=== PATIENT | female | born 1985 | race Native Hawaiian/Other Pacific Islander ===

== ENCOUNTER 2016-04-29 04:56 | Emergency (ER) | payer OTHER ==
[2016-04-29 04:57] VITALS: BP 119/80; PULSE 75; RESP 16; O2SAT 99
--- NOTE | 2016-04-29 05:15 | ED.REPORT ---
HPI-Headache Date of Service Apr 29, 2016 ED Provider: Doc,Ed MD Patient is a 30 year old female who presents to the ED complaining of a headache that began last night at 10pm. Patient states that the pain is localized to the back of her head. Patient states that she often has headaches, usually at least once a week. However, her headache tonight is different from her usual headache. She is unable to describe how this headache differs from her usual headache. Patient admits to taking Ibuprofen for her headache tonight. Patient denies having ear pain or eye pain. She reports waking up this morning with numbness of the palm of her right hand. Patient denies recent trauma or injury to her head. She states that the pain started while she was at work. She works at the [employer]. Nursing Notes Stated Complaint: HEADACHE Chief Complaint: Neuro Symptoms/ Deficits Nursing Notes Reviewed: Yes Allergies: Coded Allergies: No Known Allergies (Unverified , 04/29/16) General Time Seen by MD: 05:14 Chief Complaint Headache Hx Obtained From: Patient Arrived By: Walk-in Sudden in Onset?: No Onset Occurred: Yesterday Symptom Duration: Since onset Location: : Occipital bilateral Quality: Painful Recent Healthcare: No recent doctor visit, No recent hospitalization Similar Sx Previous: No Past Medical History Past Medical History gestational diabetes Smoking History Never Smoker Social History Alcohol Use: Denies alcohol use Drug Use: Denies drug use Other Social History: Good social support, Local resident Ambulatory Status Independent Review of Systems Eyes: Denies: Eye pain bilateral Ears / Nose / Throat: Denies: Earache bilateral GI: Denies: Nausea, Vomiting Neurologic: Reports: Headache, Numbness Complete sys rev & neg: except as marked. Physical Exam Initial Vital Signs Vital Signs (First) Date Time Temp Pulse Resp B/P Pulse Ox O2 Delivery O2 Flow Rate FiO2 04/29/16 04:57 36.4 75 16 119/80 99 Room Air Re-Eval/Medical Decision Counseled Regarding: Diagnosis Discharge & Departure Scribe Attestation Portions of this note were transcribed by Rayne Washington. I, Dr. Raya personally performed the history, physical exam and medical decision-making; I reviewed and confirmed the accuracy of the information in the transcribed note. Signed by: Serafin Joyner, 04/29/2016 0200 Darrin Raya MD Apr 29, 2016 05:15 Rayne Washington Apr 29, 2016 05:20
[2016-04-29] MEDS ORDERED: Ketorolac 30 mg/mL 2 mL Inj IM ONE (05:45)
--- NOTE | 2016-04-29 07:33 | ED.REPORT ---
HPI-Headache Date of Service Apr 29, 2016 ED Provider: Destinee Clifton MD History of Present Illness: Patient is a 30 y.o. F with past medical history of gestational diabetes who presents to the ED with onset of headache that began 10 PM 04/28/16. Patient stated that she has had several similar episodes of this type of pain in the past and that this pain is very similar. Patient stated that pain began gradually on the side of her head bilaterally and moved to the back of her head. Pain is described a throbbing type of pain. Patient stated that she uses ibuprofen and tylenol for headaches with good relief. Patient cannot recall aggrivating factor to headache. She denies nausea, vomiting, visual field defects, imbalance, loss of bowel or bladder control, change in taste, change in smell, hearing changes. She deneied that this is the worst headache of my life, and that this headache is similar to previous headaches. Additionally patient stated that she has numbness and tingling of her right hand. Patient stated that this was present before her headache began, that it comes and goes without relation to headaches. Described pain a tingling, sharp, numbness over thumb and first two fingers. Stated it is worse at the end of the day. Made worse with movement. Nursing Notes Stated Complaint: HEADACHE Chief Complaint: Neuro Symptoms/ Deficits Nursing Notes Reviewed: Yes Allergies: Coded Allergies: No Known Allergies (Unverified , 04/29/16) Scheduled PRN Naproxen (Naprosyn) 500 Mg Tablet 500 MG PO BID PRN PRN For Pain General Time Seen by MD: 07:30 Chief Complaint Headache Hx Obtained From: Patient Sudden in Onset?: No Onset Occurred: 5 - 8 hours ago Recent Healthcare: No recent doctor visit, No recent hospitalization Similar Sx Previous: Yes Past Medical History Past Medical History gestational diabetes Past Surgical History none reported Smoking History Never Smoker (works in [employer] daily second hand smoke exposure) Social History Alcohol Use: "Social" Other Social History: Good social support, Local resident Ambulatory Status Independent Review of Systems Basic Review of Systems Respiratory: No shortness of breath, No cough, No wheeze Cardiovascular: No chest pain, No dyspnea on exertion, No orthopnea, No parox noct dyspnea, No palpitations : No dysuria, No frequency Hematologic: No bleeding, No bruising Endocrine: No cold intolerance, No heat intolerance, No weight gain, No weight loss Allergy / Immune: No allergy Constitutional: Denies: Chills, Fever Eyes: Reports: Redness bilateral, Denies: Blurred bilateral, Diplopia Ears / Nose / Throat: Denies: Ear drainage bilateral, Ear ringing bilateral, Hearing loss bilateral, Nasal congestion, Nose bleeding, Throat swelling, Tongue pain, Toothache GI: Denies: Abdominal pain, Constipation, Diarrhea, Nausea, Vomiting Musculoskeletal: Reports: Neck pain Neurologic: Reports: Headache, Denies: Abnormal movement, Bladder dysfunction, Bowel dysfunction, Confusion , Dizziness, Focal weakness, Lightheaded Complete sys rev & neg: except as marked. Physical Exam Initial Vital Signs Vital Signs (First) Date Time Temp Pulse Resp B/P Pulse Ox O2 Delivery O2 Flow Rate FiO2 04/29/16 04:57 36.4 75 16 119/80 99 Room Air Initial VS: Reviewed ENT: Mucous membranes moist, Conjunctiva normal, No scleral icterus Respiratory: Breath sounds normal, Clear to auscultation, No respiratory distress Cardiovascular: Regular rate & rhythm, Heart sounds normal, Intact distal pulses Abdomen / GI: Soft, Non-tender, No guarding, No rebound, No distention Back: No CVA tenderness Lymphatic: No lymphadenopathy Extremities: Vascular intact, Neuro intact, No swelling, No tenderness Skin: Warm, Dry, No cyanosis Psychiatric: Mood/affect normal, Behavior normal, Normal thought content Neck: No meningismus Neurologic: Oriented X3, Speech NL, No motor deficits, No sensory deficits, CN II - XII intact, Cerebellar NL Focal Weakness: Negative: Pronator drift L, Pronator drift R Sensory Deficit: Positive: Median nerve deficit (right: positive tinels sign, postive phalen's test) Wrist / Hand: Neurologic intact, Vascular intact, No ligamentous injury, No clubbing/cyanosis Right Wrist: Positive: Carpal tunnel signs... (Tinel's and Phalen's sign present), ROM reduced (due to pain), Swelling present... (Mild) Procedures Procedure Notes: After Verbal consent obtained a structual osteopathic exam of head and neck was completed. Hypertonicity of the suboccipital muscles was noted on exam. Area was treated with suboccipital release. Patient noted improvement of symptoms Re-Eval/Medical Decision Med Decision/Clinical Course 30 y.o. F who presented with headache and numbness/tingling of right hand. After history was taken headache and pain described by patient were elucidated to be unrelated and chronic in nature. No focal neurological deficits seen on exam, no thunderclap headeache, no meningismus, no LOC reported, full ROM of neck. At this time subarachnoid hemorrhage, aneurysm, meningitis are not suspected. Patient recieved improvement from Toradol and osteopathic manipulation. Cause of patients symptoms are consistent with a tension headache. Counseled Regarding: Diagnosis, Lab results, Need for follow-up, When/why to return to ED Discharge & Departure Impression: Primary Impression: Headache Headache type: tension-type Headache chronicity pattern: unspecified pattern Intractability: not intractable Qualified Code: G44.209 - Tension- type headache, unspecified, not intractable Additional Impressions: Tension headache Carpal tunnel syndrome of right wrist Discharge Condition All VS Reviewed: Yes Condition: Stable Patient Instructions: Acute Headache (DC), Carpal Tunnel Syndrome (DC), Tension Headache (DC) Additional Instructions: During you visit to [facility] Emergency Department we conducted a physical exam and treated your headache with an anti-inflammatory medication. No acute processes or abnormalities requiring emergent intervention are required. Your vital signs were stable and safe for discharge. We will send you home with - Pain medications Naprosyn - Nausea medications Zofran Do not hesitate to call emergency services or your primary care physician if you experience any of the following. - High unrelenting fevers. - Uncontrolled vomiting. - Severe hypertension. - Syncope or loss of consciousness. - Chest pain or severe shortness of breath. - Sudden change in vision Follow up with your primary care physician in 1 weeks time following your emergency department visit for medication checks and general well-being. Referrals: [facility]CP (PCP) [facility] Attending Statement pt seen and examined. Agree with assessment and plan as above. copies to: [facility] JAYLEEN VILLALPANDO DO Apr 29, 2016 07:33 Destinee Clifton MD Apr 29, 2016 08:52
[2016-04-29] MEDS ORDERED: NAPR500T PO (07:34)
[2016-04-29 07:47] VITALS: BP 123/91; PULSE 96; RESP 20; O2SAT 97
== END 2016-04-29 07:48 | disposition home or self-care (01) ==
LOC: SED 04:56
DX: G44.209 Tension-type headache, unspecified, not intractable (principal); G56.01 Carpal tunnel syndrome, right upper limb; Z77.22 Contact with and (suspected) exposure to environmental tobacco smoke (acute) (chronic); Z86.32 Personal history of gestational diabetes
CPT/HCPCS: 96372; 98925; 99283; J1885